=== PATIENT | male | born 1975 | race Caucasian/White ===

== ENCOUNTER → 2019-12-10 11:40 | Outpatient (BNVA) | payer BC, SELFPAY | PROVIDERS: Family Provider Family Medicine; PCP Internal Medicine; Visit Provider Nurse Practitioner | DX: M10.9 Gout, unspecified (principal) | CPT/HCPCS: 84550 ==

== ENCOUNTER 2019-12-30 12:33 | Outpatient (CLI) | payer BC, SELFPAY ==
--- NOTE | 2019-12-30 12:45 | USCV_ITS ---
Rommel Colvin Age: 44 Gender: M : 1975 Exam Date: 12/30/2019 12:56 Ordering Phys: Jermaine Cespedes DO Technologist: Tamiko Jara Exam Location: [facility] – [place] Indication: HISTORY: Lower extremity pain. PROCEDURES: Comparison: none available. Right duplex Venous Insufficiency study of the Deep and Superficial systems was carried out according to normal protocol with the patient in supine positon for deep system and dependent position for the superficial system. Serial compression, augmentation maneuvers, and spectral Doppler flow evaluation were performed. FINDINGS: No evidence of DVT seen in any vessel visualized at this time. Vein measurements and reflux times are listed below were applicable. Evidence of deep system reflux. Measuremts listed above. Evidence of reflux in the greater saphenous vein in the upper thigh. Measurements listed above. CONCLUSIONS 1. No evidence of DVT in the above-mentioned identifiable veins. 2. Significant venous reflux of greater than 1000 ms was noted in the right popliteal vein. 3. Significant venous reflux of greater than 500 ms were noted at the right saphenofemoral junction, distal to the saphenofemoral junction and at the mid segment of the greater saphenous vein. The great saphenous vein segments were measuring 0.91, 0.63 and 0.51 cms respectively at these segments. The mid segment of the greater saphenous vein was 0.7 cm from the surface. The other segments are more than 1 cm from the surface 4. The rest of the venous dimensions and depth from the surface are as mentioned above No similar previous studies are available for comparison Dr Linda Golden MD [facility] (Electronically Signed) Final Date: 30 December 2019 19:07 S
== END 2019-12-30 12:34 | disposition home or self-care (01) ==
LOC: RAD 12:36
PROVIDERS: Family Provider Family Medicine; PCP Internal Medicine; Visit Provider Family Medicine
DX: M79.89 Other specified soft tissue disorders (principal); M10.9 Gout, unspecified; M79.604 Pain in right leg
CPT/HCPCS: 93971

== ENCOUNTER → 2022-03-26 08:40 | Outpatient (BNVA) | payer BC, SELFPAY | PROVIDERS: Family Provider Family Medicine; PCP Internal Medicine; Visit Provider Clinical Nurse Specialist Adult Health | DX: E78.5 Hyperlipidemia, unspecified (principal); I10 Essential (primary) hypertension; E78.2 Mixed hyperlipidemia | CPT/HCPCS: 80053; 80061 ==

== ENCOUNTER → 2023-08-07 08:38 | Outpatient (BNVA) | payer OTHER, SELFPAY | PROVIDERS: Family Provider Family Medicine; PCP Family Medicine; Visit Provider Clinical Nurse Specialist Adult Health | DX: I10 Essential (primary) hypertension (principal); E78.2 Mixed hyperlipidemia; R73.09 Other abnormal glucose; R53.83 Other fatigue | CPT/HCPCS: 80053; 80061; 82306; 83036; 83721; 84443; 85025 ==

== ENCOUNTER → 2024-03-30 18:10 | Outpatient (BNVA) | payer OTHER, SELFPAY | PROVIDERS: Family Provider Family Medicine; PCP Family Medicine; Visit Provider Emergency Medicine | DX: J06.9 Acute upper respiratory infection, unspecified (principal) | CPT/HCPCS: 87400; 87426 ==

== ENCOUNTER → 2025-02-21 08:58 | Outpatient (BNVA) | payer OTHER, SELFPAY | PROVIDERS: Family Provider Family Medicine; PCP Family Medicine; Visit Provider Family Medicine | DX: I10 Essential (primary) hypertension (principal); E11.9 Type 2 diabetes mellitus without complications; M10.9 Gout, unspecified; E78.2 Mixed hyperlipidemia; E55.9 Vitamin D deficiency, unspecified; E03.9 Hypothyroidism, unspecified; M19.90 Unspecified osteoarthritis, unspecified site | CPT/HCPCS: 80053; 80061; 82306; 82607; 83036; 84443; 84550; 85025 ==